=== PATIENT | male | born 1940 | race African-American/Black ===

== ENCOUNTER 2024-05-28 09:27 | Emergency (ER) | payer OTHER ==
[~2024-05-28] VITALS: Ht 182.9 cm; Wt 68.0 kg
[2024-05-28 09:32] VITALS: O2SAT 98
[2024-05-28 11:08] VITALS: BP 114/63; PULSE 79; RESP 12; TEMP 36.6; O2SAT 100
== END 2024-05-28 11:08 | disposition home or self-care (01) ==
LOC: ER 09:44
DX: S09.90XA Unspecified injury of head, initial encounter (principal); Z85.118 Personal history of other malignant neoplasm of bronchus and lung; W01.0XXA Fall on same level from slipping, tripping and stumbling without subsequent striking against object, initial encounter; Y93.89 Activity, other specified; Y92.89 Other specified places as the place of occurrence of the external cause; Y99.8 Other external cause status
CPT/HCPCS: 99284